=== PATIENT | male | born 1980 | race Caucasian/White ===

== ENCOUNTER 2016-05-17 20:49 | Emergency (ER) | payer OTHER ==
[2016-05-17 22:04] LABS: BASO % 0.1 % (0.2-1.2); EOS % 0.1 % (0.8-7.0); GRAN # 7.3 10_X3_uL (1.8-5.4); GRAN % 80.5 % (34.0-67.9); HEMATOCRIT 44.1 % (40-51); HEMOGLOBIN 15.8 g/dL (13.7-17.5); LYMPH # 1.1 10_X3_uL (1.3-3.6); LYMPH % 12.5 % (21.8-53.1); MEAN CORPUSCULAR HEMOGLOBIN 32.3 pg (27.0-33.0); MEAN CORPUSCULAR HGB CONC 35.8 g/dL (32.0-36.0); MEAN CORPUSCULAR VOLUME 90.2 fL (79-92); MEAN PLATELET VOLUME 9.9 fl (7.5-11.5); MONO # 0.6 10_X3_uL (0.3-0.8); MONO % 6.8 % (5.3-12.2); PLATELET COUNT 247 x10_3/uL (163-337); RED BLOOD COUNT 4.89 x10_6/uL (4.6-6.1); RED CELL DISTRIBUTION WIDTH 12.2 % (11.6-14.4); WHITE BLOOD COUNT 9.1 x10_3/uL (4.2-9.1)
[2016-05-17 22:25] LABS: ALBUMIN 4.7 gm/dL (3.4-5.0); ALKALINE PHOSPHATASE 63 U/L (50-136); ALT/SGPT 29 U/L (7.53-40.17); AST/SGOT 22 U/L (6.66-35.34); BILIRUBIN,TOTAL 0.78 mg/dL (0.0-1.0); BLOOD UREA NITROGEN 11 mg/dL (7-18); CALCIUM 9.6 mg/dL (8.7-10.7); CARBON DIOXIDE 27 mmol/L (21-32); GLUCOSE,RANDOM 104 mg/dL (70-99); POTASSIUM 3.9 mmol/L (3.5-5.1); SODIUM 142 mmol/L (136-145); TOTAL PROTEIN 7.8 gm/dL (6.4-8.2)
== END 2016-05-18 04:44 | disposition home or self-care (01) ==
LOC: ER 20:49
PROVIDERS: Emergency Medicine
DX: J06.9 Acute upper respiratory infection, unspecified (principal); R11.0 Nausea; I10 Essential (primary) hypertension; J45.909 Unspecified asthma, uncomplicated; Z88.6 Allergy status to analgesic agent; Z79.899 Other long term (current) drug therapy
CPT/HCPCS: 36415; 80053; 85025; 87400; 99283